=== PATIENT | female | born 1985 | race African-American/Black ===

== ENCOUNTER 2021-05-20 08:21 | Emergency (ER) | payer BC ==
[~2021-05-20] VITALS: Ht 157.5 cm; Wt 104.3 kg
== END 2021-05-20 12:06 | disposition home or self-care (01) ==
LOC: ER 08:21
DX: N13.39 Other hydronephrosis (principal); R10.84 Generalized abdominal pain

== ENCOUNTER → 2021-05-20 | Emergency (ER) | payer BC ==
[~2021-05-20] VITALS: Ht 157.5 cm; Wt 102.1 kg
== END | disposition left against medical advice (07) ==
LOC: ER 05:19
DX: Z53.20 Procedure and treatment not carried out because of patient's decision for unspecified reasons (principal)